=== PATIENT | female | born 1950 | race Caucasian/White ===

== ENCOUNTER 2017-06-01 19:20 | Emergency (ER) | payer OTHER ==
[2017-06-01 19:32] VITALS: BP 143/84; BMI 37.7
--- NOTE | 2017-06-01 21:13 | DR.GENAD ---
HPI - PCP Primary Care Physician: EMMA KING - Complaint/Symptoms Chief Complaint Doctors Comments: Patient states that she visited her primary care physician today and was treated for sinus infection with steroid and antibiotics. She was advised that the glucose would go but she was not aware that it would over 500mg/dl. She gave herself sliding scale insulin but has not been able to reduce the the blood sugar. Chief Complaint:: BLOOD SUGAR HIGH Self Treatment fo Chief Complaint: PT WAS TREATED FOR SINUS INFECTION WITH STEROID AND ANTIBIOTICS; BLOOD SUGAR HAS BEEN HIGH SINCE STEROID SHOT. - Source History Provided: Patient - Mode of Arrival Mode of Arrival: Ambulatory - Timing Onset of Chief Complaint: 05/31/17 PMH - PMH Past Medical History: Yes Past Medical History: CHF, Diabetes, Hypertension, Renal Disease Past Medical History Comment: CKD Past Surgical History: Yes Surgical History: , Cholecystectomy, Hysterectomy - Family History History of Family Medical Conditions: No Family Medical History: Diabetes Mellitus, Heart Failure, Hypertension - Social History Does patient currently use any type of tobacco product: No Have you used tobacco products in the last 12 months: No Type of Tobacco Use: None Alcohol Use: None Do you use any recreational Drugs:: No Lives With: Alone - infectious screening In the last 2 months have you had wt loss of >10#?: NO Have you had fever, night sweats or hemotysis?: No Have you traveled outside the country in the last 6 months?: No Isolation: Standard PE - Vital Signs Vitals: Temperature 97.9 F Pulse Rate 74 Respiratory Rate 20 Blood Pressure [Left Arm] 128/78 Blood Pressure 143/84 O2 Sat by Pulse Oximetry 96 - Discharge Plan Condition: Stable - Follow ups/Referrals Follow ups/Referrals: EMMA KING [Primary Care Provider] - 3 days - Instructions
[2017-06-01] MEDS ORDERED: NS 1000 ML 1,000 ML IV ONE (21:23)
[2017-06-01] MEDS ORDERED: NS 1000 ML 1,000 ML ONE (21:28)
[2017-06-01 21:46] LABS: BASOPHILS % (AUTO) 0.3 % (0.2-1.0); HEMOGLOBIN 13.4 g/dL (12.0-16.0); LYMPHOCYTES # (AUTO) 1.1 X10^3/uL (1.3-2.9); LYMPHOCYTES % (AUTO) 11.9 % (21.0-51.0); MEAN CORPUSCULAR HEMOGLOBIN 27.7 pg (27.0-34.0); MEAN CORPUSCULAR HGB CONC 33.5 g/dL (33.0-35.0); MEAN CORPUSCULAR VOLUME 82.6 fL (80.0-100.0); MEAN PLATELET VOLUME 8.9 fL (7.4-11.0); MONOCYTES # (AUTO) 0.7 x10^3/uL (0.3-0.8); MONOCYTES % (AUTO) 7.7 % (0.0-13.0); NEUTROPHILS # (AUTO) 7.1 x10^3/uL (2.2-4.8); NEUTROPHILS % (AUTO) 80.1 % (42.0-75.0); PLATELET COUNT 154 X10^3/uL (150.0-450.0); RED BLOOD COUNT 4.84 X10^6/uL (3.5-5.4); RED CELL DISTRIBUTION WIDTH 14.3 % (11.6-16.5); WHITE BLOOD COUNT 8.8 X10^3/uL (3.6-10.0)
[2017-06-01 21:48] LABS: CALCIUM 8.9 mg/dL (8.5-10.1); CARBON DIOXIDE 24.9 mmol/L (21-32); CREATININE 2.27 mg/dL (0.55-1.02)
[2017-06-01 21:49] LABS: BILIRUBIN,URINE NEGATIVE (NEGATIVE); BLOOD/HEMOGLOBIN,URINE NEGATIVE (NEGATIVE); GLUCOSE, URINE 4+ (NEGATIVE); KETONES,URINE NEGATIVE (NEGATIVE); LEUKOCYTE ESTERASE ,URINE NEGATIVE (NEGATIVE); NITRITES,URINE NEGATIVE (NEGATIVE); PH,URINE 6.5 (5.0 - 8.0); PROTEIN,URINE NEGATIVE (NEGATIVE); UROBILINOGEN,URINE NORMAL (NORMAL)
[2017-06-01 22:01] LABS: APPEARANCE,URINE CLEAR (CLEAR)
[2017-06-01 22:02] LABS: BACTERIA,URINE TRACE /HPF (NEGATIVE); COLOR,URINE PALE YELLOW (YELLOW); RBC,URINE NONE SEEN /HPF (NEGATIVE); SQUAMOUS EPITHELIAL CELL,UR RARE /HPF (NEGATIVE)
[2017-06-01] MEDS: HumaLOG SC PRN (23:00)
[2017-06-01] MEDS ORDERED: HumuLIN R ONE (23:15)
[2017-06-02] MEDS ORDERED: HumuLIN R ONE (00:21)
[2017-06-02] MEDS: HumaLOG SC PRN (00:26)
== END 2017-06-02 00:35 | disposition home or self-care (01) ==
LOC: ER 19:20
DX: R73.9 Hyperglycemia, unspecified (principal)
CPT/HCPCS: 36415; 80048; 81001; 85025; 96365; 96372; 99282; 99283; A4222; J1815

== ENCOUNTER → 2017-06-12 | Outpatient (CLI) | payer OTHER ==
[2017-06-01 19:32] VITALS: BP 143/84
--- NOTE | 2017-06-18 08:25 | MG ---
Examination: Bilateral screening mammogram. Clinical history: Routine screening. Technique: Digital CC and MLO views of both breasts were obtained. Computer aided detection analysis was performed and used during the interpretation. Comparison: 05/09/2016. Findings: The breasts are composed almost entirely of adipose tissue. Benign-appearing calcifications are noted in the breasts bilaterally. No suspicious mass, area of architectural distortion or suspicious cluster of microcalcifications is noted. Impression: 1. No mammographic evidence of malignancy. BI-RADS category 2-benign findings. Recommend routine annual screening mammogram. Diagnostic CAD was utilized and reviewed. * 0 (ZERO) - ASSESSMENT INCOMPLETE; ADDITIONAL IMAGING IS NEEDED. * 0C - ASSESSMENT INCOMPLETE, NEEDS ADDITIONAL IMAGING EVALUATION AND/OR PRIOR MAMMOGRAMS FOR COMPARI SON. * 1/1 (ONE) - NEGATIVE. * 2/II (TWO) - BENIGN FINDINGS. * 3/III (THREE) - PROBABLY BENIGN FINDING; SHORT INTERVAL FOLLOW-UP SUGGESTED. * 4/IV (FOUR) - SUSPICIOUS ABNORMALITY; BIOPSY SHOULD BE CONSIDERED. * 5/V - HIGHLY SUSPICIOUS OF MALIGNANCY; BIOPSY SHOULD BE PERFORMED. * 6/IV - KNOWN BIOPSY PROVEN MALIGNANCY-APPROPRIATE ACTION SHOULD BE TAKEN. A NEGATIVE X-RAY REPORT SHOULD NOT DELAY BIOPSY IF A DOMINANT OR CLINICALLY SUSPICIOUS MASS IS PRESENT; 4 TO 8 PERCENT OF CANCERS ARE NOT IDENTIFIED BY X-RAY. A NEGATIVE REPORT MAY REINFORCE THE CLINICAL IMPRESSION. ADENOSIS AND DENSE BREASTS MAY OBSCURE AN UNDERLYING NEOPLASM. Reported By:
== END ==
LOC: RAD 08:20
PROVIDERS: ATTEND Obstetrics & Gynecology
DX: Z12.31 Encounter for screening mammogram for malignant neoplasm of breast (principal)
CPT/HCPCS: 77067

== ENCOUNTER → 2017-07-16 | Outpatient (CLI) | payer OTHER ==
[2017-07-16 09:40] LABS: BASOPHILS # (AUTO) 0.1 X10^3/uL (0.0-0.1); BASOPHILS % (AUTO) 0.6 % (0.2-1.0); EOSINOPHILS # (AUTO) 0.1 x10^3/uL (0.0-0.2); EOSINOPHILS % (AUTO) 1.2 % (0.9-2.9); HEMATOCRIT 41.5 % (36.0-47.0); HEMOGLOBIN 14.1 g/dL (12.0-16.0); LYMPHOCYTES # (AUTO) 1.8 X10^3/uL (1.3-2.9); LYMPHOCYTES % (AUTO) 20.4 % (21.0-51.0); MEAN CORPUSCULAR VOLUME 82.4 fL (80.0-100.0); MEAN PLATELET VOLUME 8.9 fL (7.4-11.0); MONOCYTES # (AUTO) 0.7 x10^3/uL (0.3-0.8); MONOCYTES % (AUTO) 7.3 % (0.0-13.0); NEUTROPHILS # (AUTO) 6.3 x10^3/uL (2.2-4.8); NEUTROPHILS % (AUTO) 70.5 % (42.0-75.0); PLATELET COUNT 175 X10^3/uL (150.0-450.0); RED BLOOD COUNT 5.04 X10^6/uL (3.5-5.4); RED CELL DISTRIBUTION WIDTH 15.1 % (11.6-16.5); WHITE BLOOD COUNT 8.9 X10^3/uL (3.6-10.0)
[2017-07-16 09:49] LABS: ALANINE AMINOTRANSFERASE 25 Units/L (12-78); ALBUMIN 3.4 g/dL (3.4-5.0); ALKALINE PHOSPHATASE 95 Units/L (46-116); ASPARTATE AMINO TRANSFERASE 19 Units/L (15-37); BILIRUBIN,DIRECT 0.19 mg/dL (0-0.2); BLOOD UREA NITROGEN 39 mg/dL (7-18); CALCIUM 9.8 mg/dL (8.5-10.1); CARBON DIOXIDE 29.6 mmol/L (21-32); CHLORIDE 98 mmol/L (98-107); COR NA(FOR HYPERGLY) 141 mmol/L (136-145); CREATININE 1.59 mg/dL (0.55-1.02); HEMOGLOBIN A1C 9.4 % (4.5-6.2); PHOSPHORUS 3.9 mg/dL (2.6-4.7); SODIUM 136 mmol/L (136-145); TOTAL PROTEIN 7.6 g/dL (6.4-8.2); eGFR BLACK RACES 42 (>60); eGFR NON BLACK RACES 35 (>60)
== END ==
LOC: LAB 09:17
PROVIDERS: ATTEND Internal Medicine Nephrology
DX: E78.4 Other hyperlipidemia (principal); I12.9 Hypertensive chronic kidney disease with stage 1 through stage 4 chronic kidney disease, or unspecified chronic kidney disease; E11.22 Type 2 diabetes mellitus with diabetic chronic kidney disease; N18.3 Chronic kidney disease, stage 3 (moderate)
CPT/HCPCS: 36415; 80069; 80076; 83036; 85025

== ENCOUNTER → 2017-07-19 | Outpatient (CLI) | payer OTHER | LOC: LAB 08:01 | PROVIDERS: ATTEND Internal Medicine Gastroenterology | DX: K64.0 First degree hemorrhoids (principal); D64.89 Other specified anemias | CPT/HCPCS: 82270 ==

== ENCOUNTER 2017-08-04 09:47 | Emergency (ER) | payer OTHER ==
[2017-08-04 09:55] VITALS: BP 136/71; BMI 37.0
--- NOTE | 2017-08-04 10:27 | DR.GENAD ---
HPI - PCP Primary Care Physician: RODERICK KING - Complaint/Symptoms Chief Complaint Doctors Comments: Patient states that she has not vomited since last night. She has been taking cough medicine due to cough. She denies fever or diarrhea. Chief Complaint:: PT STATES " I AM SICK , AND I HAVE VOMITTED ALL DAY YESTERDAY PT HAS HAND NO VOMITING SINCE LAST NIGH".. Self Treatment fo Chief Complaint: PT STATES HER VOMIT WAS YELLOW AND SHE WAS TOO SICK TO COME YESTERDAY AND SHE WAS ABLE TO EAT A PIECE OF TOAST LAST NIGHT .. - Source History Provided: Patient - Mode of Arrival Mode of Arrival: Ambulatory - Timing Onset of Chief Complaint: 08/03/17 PMH - PMH Past Medical History: Yes Past Medical History: CHF, Diabetes, Hypertension, Renal Disease Past Surgical History: Yes Surgical History: , Cholecystectomy, Hysterectomy - Family History History of Family Medical Conditions: No Family Medical History: Diabetes Mellitus, Heart Failure, Hypertension - Social History Does patient currently use any type of tobacco product: No Type of Tobacco Use: None Does any household member use tobacco: No Alcohol Use: None Do you use any recreational Drugs:: No Lives With: Family Lives Where: Home - infectious screening In the last 2 months have you had wt loss of >10#?: NO Have you had fever, night sweats or hemotysis?: No Have you traveled outside the country in the last 6 months?: No Isolation: Standard ROS - Review of Systems Eyes: No Symptoms Reported ENTM: No Symptoms Reported Respiratoy: No Symptoms Reported Cardiovascular: No Symptoms Reported Gastrointestinal/Abdominal: No Symptoms Reported Genitourinary: No Symptoms Reported Neurological: No Symptoms Reported Musculoskeletal: No Symptoms Reported Integumentary: No Symptoms Reported Hematologic/Lymphatic: No Symptoms Reported Endocrine: No Symptoms Reported Psychiatric: No Symptoms Reported All Other Systems: Reviewed and Negative PE - Vital Signs Vitals: Temperature 97.6 F Pulse Rate 71 Respiratory Rate 18 Blood Pressure [Left Arm] 128/78 Blood Pressure 136/71 O2 Sat by Pulse Oximetry 98 - General Limitations: No Limitations General Appearance: Alert, In No Apparent Distress - Head Head Exam: Normal Inspection, Atraumatic - Eyes Eye exam: Normal Appearance, PERRL, EOMI - ENT ENT Exam: Normal Exam External Ear Exam: Normal External Inspection TM/Canal Exam: Bilateral Normal Nose Exam: Normal Nose Exam Mouth Exam: Normal Inspection Throat Exam: Normal Inspection - Neck Neck Exam: Normal Inspection - Chest Chest Inspection: Normal Inspection - Respiratory Respiratory Exam: Normal Lung Sounds Bilat Respiratory Exam: Bilateral Clear to Auscultation - Cardiovascular Cardiovascular Exam: Regular Rate, Normal Rhythm - Abdominal Exam Abdominal Exam: Normal Inspection, Normal Bowel Sounds Abdominal Tenderness: negative: RUQ, RLQ, LUQ, LLQ, Epigastrium, Suprapubic, Diffuse, Mild, Moderate, Severe, Other - Extremities Extremities Exam: Normal Inspection, Full ROM - Back Back Exam: Normal Inspection, Full ROM - Neurologic Neurological Exam: Alert, Oriented X3, CN II-XII Intact - Psychiatric Psychiatric Exam: Normal Affect, Normal Mood - Skin Skin Exam: Warm, Dry, Intact Course - Reevaluation 1st: Unchanged - Diagnosis Discharge Problem: Cough Vomiting alone Qualifiers: Vomiting type: unspecified Vomiting Intractability: non-intractable Qualified Code(s): R11.11 - Vomiting without nausea - Discharge Plan Condition: Stable - Follow ups/Referrals Follow ups/Referrals: EMMA KING [Primary Care Provider] - 3 days - Instructions
== END 2017-08-04 10:35 | disposition home or self-care (01) ==
LOC: ER 10:04
DX: R11.11 Vomiting without nausea (principal); R05 Cough
CPT/HCPCS: 99281; 99282

== ENCOUNTER → 2017-11-25 | Outpatient (CLI) | payer OTHER ==
--- NOTE | 2017-11-25 14:23 | VAS ---
HISTORY: Extremity pain, swelling, and edema Study: Left lower extremity Doppler venous ultrasound. TECHNIQUE: Multiple dexter scale and color flow Doppler images of the deep venous system were obtained of the left lower extremity. FINDINGS: The deep venous system of the left lower extremity evaluated from the level of the common femoral vei n through the popliteal vein. Normal color flow and augmentation can be observed. In addition, norm al compression is seen throughout the deep venous system. There is a hypoechoic 2 x 1 cm Stark's cyst seen in the left popliteal fossa on this examination. IMPRESSION: Negative examination for DVT. 2 x 1 cm Stark's cyst observed. Reported By:
== END ==
LOC: RAD 13:22
PROVIDERS: ATTEND Nurse Practitioner Family
DX: M79.605 Pain in left leg (principal); R60.0 Localized edema; I83.12 Varicose veins of left lower extremity with inflammation; M71.22 Synovial cyst of popliteal space [Baker], left knee
CPT/HCPCS: 93971

== ENCOUNTER 2022-12-03 11:59 | Observation (INO) ==
--- NOTE | 2022-12-03 12:40 | DR.GENAD ---
HPI Time Seen Time Seen by Provider: 12/03/22 12:40 PCP Primary Care Physician: Edwin HPI Comment HPI Comment: PATIENT IS 72YR OLD FEMALE IN ER WITH GENERALIZED WEAKNESS CAUSING HER TO FALL AND INJURED HER KNEES THIS AM. DENIES FEVER, DIARRHEA, VOMITING OR DYSURIA. RECENT COVID 19 VIRUS INFECTION. REPEAT DEBRA WAS NEGATIVE SATURDAY. SLIGHT COUGH AND CONGESTION. NO CHEST PAIN OR HEADACHE. SOB ON EXERTION. APPETITE IS POOR. Complaint/Symptoms Chief Complaint Doctors Comments: GENERALIZED WEAKNESS. FEEL THIS AM AND INJURED KNEES. RECENT COVID 19 INFECTION. Chief Complaint:: patient states she has been feeling very weak since Covid, Tested negative last saturday, but just doesn't have any energy. Patient states she fell this morning and bruised left knee secondary to weakness COVID-19 Coronavirus risk:travel/contact w/high risk person: No Has patient experienced Coronavirus symptoms: No Nurses notes reviewed Nurses Notes Review: Yes Source History Provided: Patient Mode of Arrival Mode of Arrival: Wheelchair Timing Onset of Chief Complaint: 11/22/22 PMH PMH Past Medical History: Yes Past Medical History: Coronary Artery Disease, Diabetes and Hypertension Past Medical History Comment: Chronic Kidney Disease Past Surgical History: Yes Surgical History: , Cholecystectomy and Hysterectomy Past Surgical History Comment: Pacemaker 2019 Family History History of Family Medical Conditions: Yes Family Medical History: Diabetes Mellitus and Hypertension Social History Does patient currently use any type of tobacco product: No Have you used tobacco products in the last 12 months: No Type of Tobacco Use: None Does any household member use tobacco: No Alcohol Use: None Do you use any recreational Drugs:: No Lives With: Family Lives Where: Home Travel Risk Coronavirus risk:travel/contact w/high risk person: No Has patient experienced Coronavirus symptoms: No Infectious screening In the last 2 months have you had wt loss of >10#?: NO Have you had fever, night sweats or hemotysis?: No Have you traveled outside the country in the last 6 months?: No Isolation: Standard ROS Review of Systems Constitutional: Malaise, Weakness, Fatigue and Loss of Appetite; negative Fever Eyes: No Symptoms Reported; negative Blurred Vision ENTM: No Symptoms Reported Respiratoy: Short of Breath (ON EXERTION.); negative Moist Cough or Wheezing Cardiovascular: negative Chest Pain or Edema Gastrointestinal/Abdominal: negative Abdominal Pain, Diarrhea or Vomiting Genitourinary: No Symptoms Reported; negative Dysuria Neurological: No Symptoms Reported Musculoskeletal: No Symptoms Reported Integumentary: Dryness Hematologic/Lymphatic: No Symptoms Reported Endocrine: No Symptoms Reported; negative Increased Thirst or Increased Urine Psychiatric: No Symptoms Reported All Other Systems: Reviewed and Negative PE Vital Signs Vitals: Temperature 97.9 F Pulse Rate [Standing] 87 Pulse Rate [Sitting] 73 Pulse Rate [Lying] 70 Pulse Rate 70 Respiratory Rate 16 Blood Pressure [Left Arm] 127/59 Blood Pressure [Standing] 90/53 Blood Pressure [Sitting] 139/62 Blood Pressure [Lying] 175/74 Blood Pressure 105/56 O2 Sat by Pulse Oximetry 99 General Limitations: No Limitations General Appearance: Alert and In No Apparent Distress Head Head Exam: Normal Inspection and Atraumatic Eyes Eye exam: Normal Appearance and PERRL; negative Scleral Icterus or Conjunctival Injection ENT ENT Exam: Normal Exam, Normal Oropharynx, Normal External Ear Exam and TM's Normal Bilaterally Neck Neck Exam: Normal Inspection and Trachea Midline; negative Tenderness Chest Chest Inspection: Normal Inspection and Symmetric Chest Wall Rise; negative Tenderness Respiratory Respiratory Exam: Normal Lung Sounds Bilat, Accessory Muscle Use and Chest Wall Tenderness Respiratory Exam: Bilateral: Rhonchi Cardiovascular Cardiovascular Exam: Regular Rate, Normal Rhythm and Normal Heart Sounds; negative Systolic Murmur or Diastolic Murmur Abdominal Exam Abdominal Exam: Normal Inspection, Normal Bowel Sounds, Soft and Tenderness Extremities Extremities Exam: Normal Inspection and Normal Capillary Refill Back Back Exam: Normal Inspection; negative (R) CVA Tenderness or (L) CVA Tenderness Neurologic Neurological Exam: Alert and Oriented X3; negative Motor Sensory Deficit Psychiatric Psychiatric Exam: Normal Affect and Normal Mood Skin Skin Exam: Dry MDM Additional Information Additional Information Obtained From: Old Records and Family Differential Diagnosis Differential Diagnosis: GENERALIZED WEAKNESS, DEHYDRATION, PNEUMONIA, UTI COURSE Treatment Treatment: SEE ORDERS DONE WHILE PATIENT WAS IN ER. LABS, EKG AND XRAY REPORTS DISCUSSED WITH PATIENT. NS 125CC/HR GIVEN TO PATIENT WHILE IN ER. PATIENRT ADMITTED TO HOSPITAL FOR FURTHER MANAGEMENT. Consultation Consultation Comments: DISCUSSED PATIENT WITH DR. LITTLEJOHN. HE WILL ADMIT PATIENT. Education/Counseling Education/Counseling: Patient and Family Educated On: Diagnosis ROR Labs Reviewed Laboratory Results Reviewed?: Yes Result Diagrams: 12/06/22 05:40 12/06/22 05:40 Laboratory: WBC 18.4 X10^3/uL (3.6-10.0) H 12/03/22 13:03 RBC 4.74 X10^6/uL (3.5-5.4) 12/03/22 13:03 Hgb 13.2 g/dL (12.0-16.0) 12/03/22 13:03 Hct 39.3 % (36.0-47.0) 12/03/22 13:03 MCV 82.8 fL (80.0-100.0) 12/03/22 13:03 MCH 27.7 pg (27.0-34.0) 12/03/22 13:03 MCHC 33.5 g/dL (33.0-35.0) 12/03/22 13:03 RDW 13.8 % (11.6-16.5) 12/03/22 13:03 Plt Count 130 X10^3/uL (150.0-450.0) L 12/03/22 13:03 MPV 8.3 fL (7.4-11.0) 12/03/22 13:03 Neut % (Auto) 86.8 % (42.0-75.0) H 12/03/22 13:03 Lymph % (Auto) 9.1 % (21.0-51.0) L 12/03/22 13:03 [place] % (Auto) 3.7 % (0.0-13.0) 12/03/22 13:03 Eos % (Auto) 0.2 % (0.9-2.9) L 12/03/22 13:03 Baso % (Auto) 0.2 % (0.2-1.0) 12/03/22 13:03 Neut # (Auto) 16.0 x10^3/uL (2.2-4.8) H 12/03/22 13:03 Lymph # (Auto) 1.7 X10^3/uL (1.3-2.9) 12/03/22 13:03 [place] # (Auto) 0.7 x10^3/uL (0.3-0.8) 12/03/22 13:03 Eos # (Auto) 0.0 x10^3/uL (0.0-0.2) 12/03/22 13:03 Baso # (Auto) 0.0 X10^3/uL (0.0-0.1) 12/03/22 13:03 Absolute Nucleated RBC 0.0 /100WBC 12/03/22 13:03 Sodium 133 mmol/L (136-145) L 12/03/22 13:03 Corrected Sodium 136 mmol/L (136-145) 12/03/22 13:03 Potassium 4.9 mmol/L (3.5-5.1) 12/03/22 13:03 Chloride 99 mmol/L (98-107) 12/03/22 13:03 Carbon Dioxide 29.5 mmol/L (21-32) 12/03/22 13:03 BUN 35 mg/dL (7-18) H 12/03/22 13:03 Creatinine 2.07 mg/dL (0.55-1.02) H 12/03/22 13:03 Est GFR (MDRD) Af Amer 30 (>60) L 12/03/22 13:03 Est GFR (MDRD) Non-Af 25 (>60) L 12/03/22 13:03 Glucose 243 mg/dL (65-99) H 12/03/22 13:03 Calcium 8.8 mg/dL (8.5-10.1) 12/03/22 13:03 Corrected Calcium 9.4 mg/dL (8.5-10.1) 12/03/22 13:03 Total Bilirubin 1.10 mg/dL (0.2-1.0) H 12/03/22 13:03 AST 26 Units/L (15-37) 12/03/22 13:03 ALT 23 Units/L (12-78) 12/03/22 13:03 Alkaline Phosphatase 71 Units/L (46-116) 12/03/22 13:03 Creatine Kinase 20 Units/L (26-192) L 12/03/22 13:03 Troponin I High Sens 9.5 ng/L (4.0-60.0) 12/03/22 13:03 B-Natriuretic Peptide 79.1 pg/mL (0-79) H 12/03/22 13:03 Total Protein 6.5 g/dL (6.4-8.2) 12/03/22 13:03 Albumin 3.2 g/dL (3.4-5.0) L 12/03/22 13:03 Globulin 3.3 g/dL (2.5-4.5) 12/03/22 13:03 Albumin/Globulin Ratio 1.0 Ratio (1.1-2.1) L 12/03/22 13:03 Specimen Type Clean catch urine 12/03/22 15:25 Urine Color Pale yellow (YELLOW) 12/03/22 15:25 Urine Appearance Clear (CLEAR) 12/03/22 15:25 Urine pH 6.0 (5.0 - 8.0) 12/03/22 15:25 Ur Specific Loyal 1.020 (1.000-1.030) 12/03/22 15:25 Urine Protein Negative (NEGATIVE) 12/03/22 15:25 Urine Glucose (UA) 2+ (NEGATIVE) 12/03/22 15:25 Urine Ketones Negative (NEGATIVE) 12/03/22 15:25 Urine Blood Negative (NEGATIVE) 12/03/22 15:25 Urine Nitrite Negative (NEGATIVE) 12/03/22 15:25 Urine Bilirubin Negative (NEGATIVE) 12/03/22 15:25 Urine Urobilinogen Normal (NORMAL) 12/03/22 15:25 Ur Leukocyte Esterase Negative (NEGATIVE) 12/03/22 15:25 XRAY XRAY Interpreted by: Radiologist (REPORTS NOTED.) and Self EKG Rate: 70 [place]idan: Normal Rhythm: PVCs and Paced Block: None Hypertrophy: None Opioid Opioid Risk Tool Age (Kevin box if 16-45): No History of Preadolescent Sexual Abuse: No Total: 0 Total Score Risk Category: Low Risk Copyright: Yahir HAGER predicting aberrant behaviors Discharge Plan Diagnosis Discharge Problem: Weakness generalized, Acute dehydration, Hypotension, Pansinusitis Discharge Plan Patient Disposition: 09 ADMITTED INPATIENT Condition: Stable Orders to Discharge Patient Discharge Orders: Discharge (Routine); Ordered 12/06/22 Ordered By: REJI LITTLEJOHN
[2022-12-03] MEDS ORDERED: NS 1,000 ML IV 1,000 ML IV SCH (13:00)
--- NOTE | 2022-12-03 13:10 | EKG ---
Test Reason : SYNCOPY Blood Pressure : */* mmHG Vent. Rate : 70 BPM Atrial Rate : 70 BPM P-R Int : 166 ms QRS Dur : 158 ms QT Int : 482 ms P-R-T Axes : -9 -39 176 degrees QTc Int : 520 ms AV dual-paced rhythm Abnormal ECG When compared with ECG of 11-NOV-2022 12:38, No significant change was found Occasional fusion beats Confirmed by Paul Wright ([id number]) on 12/04/2022 7:42:24 AM Referred By: Confirmed By: Paul Wright
[2022-12-03] MEDS ORDERED: NS 1,000 ML IV 1,000 ML ONE (13:19)
[2022-12-03 13:25] LABS: BASOPHILS % (AUTO) 0.2 % (0.2-1.0); EOSINOPHILS % (AUTO) 0.2 % (0.9-2.9); HEMATOCRIT 39.3 % (36.0-47.0); HEMOGLOBIN 13.2 g/dL (12.0-16.0); LYMPHOCYTES # (AUTO) 1.7 X10^3/uL (1.3-2.9); LYMPHOCYTES % (AUTO) 9.1 % (21.0-51.0); MEAN CORPUSCULAR HEMOGLOBIN 27.7 pg (27.0-34.0); MEAN CORPUSCULAR HGB CONC 33.5 g/dL (33.0-35.0); MEAN CORPUSCULAR VOLUME 82.8 fL (80.0-100.0); MEAN PLATELET VOLUME 8.3 fL (7.4-11.0); MONOCYTES # (AUTO) 0.7 x10^3/uL (0.3-0.8); MONOCYTES % (AUTO) 3.7 % (0.0-13.0); NEUTROPHILS % (AUTO) 86.8 % (42.0-75.0); RED BLOOD COUNT 4.74 X10^6/uL (3.5-5.4); RED CELL DISTRIBUTION WIDTH 13.8 % (11.6-16.5); WHITE BLOOD COUNT 18.4 X10^3/uL (3.6-10.0)
[2022-12-03 13:44] LABS: ALBUMIN 3.2 g/dL (3.4-5.0); CALCIUM 8.8 mg/dL (8.5-10.1); CARBON DIOXIDE 29.5 mmol/L (21-32); COR CA(FOR HYPOALB) 9.4 mg/dL (8.5-10.1); CREATININE 2.07 mg/dL (0.55-1.02); TOTAL PROTEIN 6.5 g/dL (6.4-8.2)
[2022-12-03 15:42] LABS: APPEARANCE,URINE CLEAR (CLEAR); BILIRUBIN,URINE NEGATIVE (NEGATIVE); BLOOD/HEMOGLOBIN,URINE NEGATIVE (NEGATIVE); COLOR,URINE PALE YELLOW (YELLOW); GLUCOSE, URINE 2+ (NEGATIVE); KETONES,URINE NEGATIVE (NEGATIVE); NITRITES,URINE NEGATIVE (NEGATIVE); PROTEIN,URINE NEGATIVE (NEGATIVE)
[2022-12-03 15:43] LABS: LEUKOCYTE ESTERASE ,URINE NEGATIVE (NEGATIVE); UROBILINOGEN,URINE NORMAL (NORMAL)
--- NOTE | 2022-12-03 18:18 | CT ---
EXAM: PARANASAL SINUS CTHISTORY: Evaluation for paranasal sinus disease. Feeling very weak since COVID.TECHNIQUE: Spiral axial and coronal images are obtained through the paranasal sinuses without the administration of intravenous contrast. Additional sagittal and coronal reformatted images are reconstructed.DOSIMETRY: Total DLP 169.84 mGycm; CTDI 12.5 mGyCOMPARISON: None available.FINDINGS:There is chronic ethmoid and sphenoid sinusitis marked by mucoperiosteal thickening within the ethmoid sinus right maxillary sinus, marked by mucoperiosteal thickening. There is complex organized fluid/debris in the left sphenoid sinus air cell. No intrasinus air-fluid level is seen. The osteomeatal complexes are patent.There is no bony destruction reminiscent of osteomyelitis or neoplastic disease seen. No significant bony nasal septal deviation or spurring is seen. The TMJs are intact.IMPRESSION:1. Chronic bilateral ethmoid, right maxillary, left sphenoid sinusitis as described above.2. Otherwise unremarkable paranasal sinus CT scan.Electronically signed by: Ezequiel Weston (Dec 03, 2022 18:11:23)
[2022-12-03] MEDS ORDERED: LEVAQUIN PREMIX IV 500 MG 500 MG/100 ML BAG IV SCH (20:00)
[2022-12-03 20:24] VITALS: BMI 28.5
[2022-12-03] MEDS ORDERED: PREVNAR 13 SYRINGE IM ONE (20:24)
[2022-12-03] MEDS: NS 1,000 ML IV 1,000 ML IV SCH (21:47)
[2022-12-03] MEDS: NovoLIN R (or HumuLIN R) SUBCUT PRN (21:49)
[2022-12-03] MEDS ORDERED: LEVAQUIN PREMIX IV 500 MG 500 MG/100 ML BAG IV ONE (23:00)
[2022-12-04] MEDS ORDERED: TYLENOL 325 MG TAB PO PRN (00:05)
[2022-12-04 05:31] LABS: BASOPHILS % (AUTO) 0.3 % (0.2-1.0); EOSINOPHILS # (AUTO) 0.1 x10^3/uL (0.0-0.2); EOSINOPHILS % (AUTO) 0.7 % (0.9-2.9); HEMATOCRIT 34.8 % (36.0-47.0); HEMOGLOBIN 11.7 g/dL (12.0-16.0); MEAN CORPUSCULAR HEMOGLOBIN 27.7 pg (27.0-34.0); MEAN CORPUSCULAR HGB CONC 33.7 g/dL (33.0-35.0); MEAN CORPUSCULAR VOLUME 82.2 fL (80.0-100.0); MEAN PLATELET VOLUME 8.5 fL (7.4-11.0); MONOCYTES # (AUTO) 0.7 x10^3/uL (0.3-0.8); MONOCYTES % (AUTO) 6.2 % (0.0-13.0); NEUTROPHILS # (AUTO) 8.8 x10^3/uL (2.2-4.8); NEUTROPHILS % (AUTO) 75.8 % (42.0-75.0); RED BLOOD COUNT 4.24 X10^6/uL (3.5-5.4); RED CELL DISTRIBUTION WIDTH 13.8 % (11.6-16.5); WHITE BLOOD COUNT 11.5 X10^3/uL (3.6-10.0)
[2022-12-04 05:46] LABS: ALBUMIN 2.6 g/dL (3.4-5.0); CALCIUM 7.9 mg/dL (8.5-10.1); CARBON DIOXIDE 25.5 mmol/L (21-32); CREATININE 1.76 mg/dL (0.55-1.02); MAGNESIUM 1.7 mg/dL (2.0-2.9); TOTAL PROTEIN 5.6 g/dL (6.4-8.2)
[2022-12-04] MEDS: NovoLIN R (or HumuLIN R) SUBCUT PRN ×3 (06:08→21:02)
[2022-12-04] MEDS ORDERED: MICRO K EXTEN CAP 10 MEQ PO PRN (06:50)
[2022-12-04] MEDS ORDERED: POTASSIUM CHL 40 MEQ/NS 0.45% 500 ML IV PRN (06:50)
[2022-12-04] MEDS ORDERED: KLOR-CON PO PRN (06:50)
[2022-12-04] MEDS ORDERED: POTASSIUM CHLORIDE LIQ 20 MEQ UDC PO PRN (06:50)
[2022-12-04] MEDS ORDERED: K-RIDER 10 MEQ/NS 100 ML 10 MEQ/100 ML BAG IV PRN (06:50)
[2022-12-04] MEDS ORDERED: POTASSIUM CHL 60 MEQ/NS 0.45% 500 ML IV PRN (06:50)
--- NOTE | 2022-12-04 08:03 | RAD ---
HISTORYWeakness status post COVID-19STUDYChest AP [id number]/23/2023FINDINGSTher e is a pacemaker present on the left obscuring a portion of the left midlung. Heart size is normal. Amy are normal. Lung ness are clear. No pleural effusions are identified. Bony thorax is unremarkable.IMPRESSIONNo significant abnormality identifiedElectronically signed by: MARISELA COLEMAN (Dec 04, 2022 07:56:26)
[2022-12-04] MEDS: NS 1,000 ML IV 1,000 ML IV SCH ×2 (08:44→21:02)
[2022-12-04] MEDS: MAGNESIUM SULFATE 1 GRAM/100 mL PREMIX 1 G/100 ML BAG IV PRN ×2 (08:57→10:13)
[2022-12-04] MEDS: K-DUR TAB 20 MEQ PO PRN (08:58)
[2022-12-04] MEDS: LOVENOX INJ 30 MG SYR SC SCH (10:46)
[2022-12-04] MEDS: FARXIGA PO SCH (11:48)
[2022-12-04] MEDS ORDERED: SNACK - Diabetic Appropriate PO SCH (20:00)
[2022-12-04] MEDS ORDERED: GLUCOPHAGE PO SCH (21:00)
[2022-12-04] MEDS: LEVAQUIN PREMIX IV 250 MG 250 MG/50 ML BAG IV SCH (22:09)
[2022-12-05] MEDS: NovoLIN R (or HumuLIN R) SUBCUT PRN ×3 (05:49→20:37)
[2022-12-05] MEDS: ACTOS PO SCH (08:22)
[2022-12-05] MEDS: FARXIGA PO SCH (08:22)
[2022-12-05] MEDS: LOVENOX INJ 30 MG SYR SC SCH (08:23)
[2022-12-05] MEDS: NS 1,000 ML IV 1,000 ML IV SCH ×5 (09:13→22:03)
[2022-12-05 19:35] LABS: BILIRUBIN,URINE NEGATIVE (NEGATIVE); BLOOD/HEMOGLOBIN,URINE 1+ (NEGATIVE); GLUCOSE, URINE 4+ (NEGATIVE); KETONES,URINE NEGATIVE (NEGATIVE); LEUKOCYTE ESTERASE ,URINE 3+ (NEGATIVE); NITRITES,URINE NEGATIVE (NEGATIVE); PROTEIN,URINE NEGATIVE (NEGATIVE); UROBILINOGEN,URINE NORMAL (NORMAL)
[2022-12-05 19:42] LABS: APPEARANCE,URINE SLIGHTLY HAZY (CLEAR); COLOR,URINE STRAW (YELLOW); RBC,URINE 0-2 /HPF (0-3)
[2022-12-05 19:43] LABS: BACTERIA,URINE TRACE /HPF (NEGATIVE); SQUAMOUS EPITHELIAL CELL,UR FEW /HPF (NEGATIVE)
[2022-12-05] MEDS: LEVAQUIN PREMIX IV 250 MG 250 MG/50 ML BAG IV SCH (22:03)
[2022-12-06] MEDS: NS 1,000 ML IV 1,000 ML IV SCH ×2 (03:49→12:42)
[2022-12-06 06:00] LABS: BASOPHILS % (AUTO) 0.5 % (0.2-1.0); EOSINOPHILS # (AUTO) 0.1 x10^3/uL (0.0-0.2); EOSINOPHILS % (AUTO) 1.7 % (0.9-2.9); HEMATOCRIT 30.5 % (36.0-47.0); HEMOGLOBIN 10.4 g/dL (12.0-16.0); LYMPHOCYTES % (AUTO) 26.6 % (21.0-51.0); MEAN CORPUSCULAR HEMOGLOBIN 28.2 pg (27.0-34.0); MEAN CORPUSCULAR HGB CONC 34.1 g/dL (33.0-35.0); MEAN CORPUSCULAR VOLUME 82.6 fL (80.0-100.0); MEAN PLATELET VOLUME 8.1 fL (7.4-11.0); MONOCYTES # (AUTO) 0.5 x10^3/uL (0.3-0.8); MONOCYTES % (AUTO) 6.5 % (0.0-13.0); NEUTROPHILS # (AUTO) 4.9 x10^3/uL (2.2-4.8); NEUTROPHILS % (AUTO) 64.7 % (42.0-75.0); RED BLOOD COUNT 3.69 X10^6/uL (3.5-5.4); RED CELL DISTRIBUTION WIDTH 13.9 % (11.6-16.5); WHITE BLOOD COUNT 7.6 X10^3/uL (3.6-10.0)
[2022-12-06 06:19] LABS: ALANINE AMINOTRANSFERASE 15 Units/L (12-78); ALBUMIN 2.3 g/dL (3.4-5.0); ALKALINE PHOSPHATASE 51 Units/L (46-116); ASPARTATE AMINO TRANSFERASE 19 Units/L (15-37); BLOOD UREA NITROGEN 18 mg/dL (7-18); CALCIUM 7.5 mg/dL (8.5-10.1); CARBON DIOXIDE 21.5 mmol/L (21-32); CHLORIDE 110 mmol/L (98-107); COR CA(FOR HYPOALB) 8.9 mg/dL (8.5-10.1); COR NA(FOR HYPERGLY) 141 mmol/L (136-145); CREATININE 1.07 mg/dL (0.55-1.02); SODIUM 140 mmol/L (136-145); TOTAL PROTEIN 5.1 g/dL (6.4-8.2); eGFR NON BLACK RACES 54 (>60)
[2022-12-06] MEDS: K-DUR TAB 20 MEQ PO PRN (06:36)
[2022-12-06] MEDS: LOVENOX INJ 30 MG SYR SC SCH (08:49)
[2022-12-06] MEDS: ACTOS PO SCH (08:49)
[2022-12-06] MEDS: FARXIGA PO SCH (08:49)
[2022-12-06 11:36] VITALS: BP 151/64
[2022-12-06] MEDS ORDERED: PREVNAR 13 SYRINGE IM ONE (13:00)
== END 2022-12-06 13:56 | disposition home or self-care (01) ==
LOC: MED/SURG 11:59 → ER 11:59 → MED/SURG 19:35
PROVIDERS: ADMIT Obstetrics & Gynecology Obstetrics; ATTEND Obstetrics & Gynecology Obstetrics
DX: I10 Essential (primary) hypertension; S81.012A Laceration without foreign body, left knee, initial encounter; S51.011A Laceration without foreign body of right elbow, initial encounter; Z86.16 Personal history of COVID-19; R94.31 Abnormal electrocardiogram [ECG] [EKG]; E86.0 Dehydration; R53.1 Weakness; Y92.009 Unspecified place in unspecified non-institutional (private) residence as the place of occurrence of the external cause; E11.65 Type 2 diabetes mellitus with hyperglycemia; R51.9 Headache, unspecified; J01.40 Acute pansinusitis, unspecified; W18.39XA Other fall on same level, initial encounter; R26.89 Other abnormalities of gait and mobility; I25.10 Atherosclerotic heart disease of native coronary artery without angina pectoris; I95.89 Other hypotension